=== PATIENT | female | born 1950 | race Caucasian/White ===

== ENCOUNTER 2017-01-19 08:20 | Day surgery (SDC) | payer OTHER ==
[~2017-01-19 08:20] MED LIST: ALBU1.257 NEB; ASPI81TA27 PO; ATOR20TA PO; FLUT250M2 INH; GABA300C8 PO; GLIP-116 PO; IOHEXOL 350 MG/ML 100ML IJ ONE; LIDOCAINE 2%HCL (LOCAL ANESTH.) INJ 20ML MDV ONE; LOSA25TA9 PO; METF-316 PO; METO100T87; TRAM50TA2
[2017-01-19] MEDS ORDERED: MIDAZOLAM HCL 1MG/1ML-2 ML VIAL ONE (09:26)
[2017-01-19] MEDS ORDERED: fentaNYL CITRATE 100 MCG/2 ML VL ONE (09:26)
== END 2017-01-19 12:45 | disposition home or self-care (01) ==
LOC: CATH 08:20
PROVIDERS: ATTEND Internal Medicine Cardiovascular Disease
DX: I21.3 ST elevation (STEMI) myocardial infarction of unspecified site (principal); I51.9 Heart disease, unspecified; I10 Essential (primary) hypertension; E66.01 Morbid (severe) obesity due to excess calories; E11.9 Type 2 diabetes mellitus without complications; E78.5 Hyperlipidemia, unspecified; J43.9 Emphysema, unspecified; F32.9 Major depressive disorder, single episode, unspecified; F17.200 Nicotine dependence, unspecified, uncomplicated
CPT/HCPCS: 93458; C1760; C1894; J1644; J2250; J3010; J7030; Q9967; 99152